=== PATIENT | female | born 1990 | race Caucasian/White ===

== ENCOUNTER 2016-10-20 18:50 | Emergency (ER) | payer BC ==
[2016-10-20] MEDS ORDERED: NORMAL SALINE 1,000 ML IV ONE (18:59)
--- NOTE | 2016-10-20 19:08 | ERNOTE ---
Abdominal HPI - Narrative Date of Service: 10/20/16 - General Time Seen by Provider: 10/20/16 18:59 Source: patient Exam Limitations: no limitations - Immun/Allergies/Home Medications Immunizatons: IMMUNIZATION HX Immunizations Up to Date Yes Allergies/Adverse Reactions: Allergies latex Allergy (Unknown, Verified 10/20/16 20:17) Home Medications: HOME MEDICATIONS Ferrous Sulfate [Iron] 325 mg PO BID 11/01/14 [Last Taken 10/26/15 07:00] Vit No.128/Iron/FA [ Formula] 1 each PO DAILY 11/01/14 [Last Taken 10/25/15 21:00] Ascorbic Acid [Vitamin C] 500 mg PO BID 10/27/15 [Last Taken 10/25/15 2100] Ibuprofen [Motrin] 200 - 800 mg PO Q6H PRN #100 tab 10/28/15 [Last Taken Unknown ] - History of Present Illness Narrative: Pt. comes in with c/o multiple diarrheal stools for 2 days. Pt. states that she has mild intermittent RLQ pain but it is not severe or consistent. Pt. is also experiencing nausea with this. Pt. is 11 weeks . Pt. states that she has had 4 stools today. Pt. denies any prehospital treatment, melena, fever, alleviating factors, aggravating factors or prehospital treatment. Review of Systems - Review of Systems Constitutional: Present: no symptoms reported. Absent: recent illness, fever, chills, weakness, fatigue, malaise EYE: Present: no symptoms reported ENT: Present: no symptoms reported Respiratory: Present: no symptoms reported. Absent: shortness of breath, cough , wheezing Cardiology: Present: no symptoms reported. Absent: chest pain, palpitations, edema Gastrointestinal/Abdominal: Present: nausea, vomiting, diarrhea, abdominal pain Genitourinary: Present: no symptoms reported Musculoskeletal: Present: no symptoms reported. Absent: back pain, joint pain Skin: Present: no symptoms reported Neurological: Present: no symptoms reported. Absent: headache, dizziness/light- headedness, numbness, tingling All Other Systems: All systems neg except as marked - Patient's Past Medical History Patient History - Cardiac/Respiratory: Other Patient History - Cancer: No Hx of Cancer Patient History - Surgical Procedures: Other Patient History - Other: None - Social History Living Situations: spouse Abuse History: No History of abuse Psych History: No pertinent hx Alcohol Use: rarely Drug Use: none - Immunizations Immunizations Up to Date: Yes Physical Exam - Physical Exam General Appearance: Present: wd/wn, alert, no apparent distress Head Exam: Present: normal inspection, no evidence of injury Eye Exam: Normal inspection: bilateral, PERRL: bilateral, EOMI: bilateral Ears, Nose, Throat: Present: normal ENT inspection, normal pharynx Neck: Present: normal inspection, nontender. Absent: lymphadenopathy (R), lymphadenopathy (L) Respiratory: Present: no respiratory distress, normal breath sounds, no accessory muscle use, chest nontender, lungs clear Cardiovascular/Chest: Present: regular rate, rhythm, no murmur, normal peripheral pulses Gastrointestinal/Abdominal: Present: normal bowel sounds, nondistended, soft, no organomegaly, tenderness - RLQ mild. Absent: rebound, McBurney sign, Obturator sign, Dunn sign, Psoas sign, mass Back Exam: Present: normal inspection, normal range of motion, no CVA tenderness , no vertebral tenderness Extremity Exam: Present: normal inspection, non-tender, normal range of motion, no edema Neurological Exam: Present: alert, oriented, normal mood/affect, no motor/ sensory deficits Skin Exam: Present: normal color, warm/dry. Absent: pallor, skin rash ED Progress - Date and Time Seen: Date and Time: 10/20/16 20:[address] Alanis and he feels that the elevated neutrophils are likely related to gastroenterits but that pt. should follow up with OBGYN in 1- 2 days if no improvement. 10/20/16 20:[address] Adan and he agrees with treatment plan of hydration sending stool culture and having pt. follow up tomorrow by calling clinic for update. - Results and Orders Patient's Lab Results:: I have reviewed the patient's lab results. - Vital Signs Patient's Vital Signs:: I have reviewed the patient's vital signs. - CT/Ultrasound CT/Ultrasound Narrative: US shows no definable appendix or fluid abnormalities in the abdomen. US does show normal 11week IUP. - Progress/Reassessment Progress:: Improved Departure - Departure Clinical Impression: Acute gastroenteritis Disposition: Home self-care Condition: Good Instructions: Viral Gastroenteritis, Adult, [id number] Additional Instructions: Please follow up with greg JACOBS tomorrow by calling clinic with an update of your condition. Please increase fluids as able.
[2016-10-20 19:14] LABS: Hematocrit 34.2 % (37.0-47.0); Mean Corpuscular Hgb Conc 35.1 g/dl (32-36); Mean Platelet Volume 10.1 fl (6.0-9.5); Neutrophil # 9.4 K/mm3 (1.3-6.0); Neutrophil % 85.9 % (42-75.0); Platelet Count 232 K/mm3 (150-450); Red Blood Count 3.64 M/mm3 (4.2-5.4); Red Cell Distribution Width 12.6 % (11.5-14.0); White Blood Count 10.9 K/mm3 (4.0-10.5)
[2016-10-20 19:27] LABS: Albumin * 3.4 gm/dl (3.4-5.0); Anion Gap 14.4 mmol/L (6.8-13.8); BUN/Creatinine Ratio 11.3 (9.0-21.6); Bilirubin, Total 0.7 mg/dL (0.0-1.1); Ca. Corrected For Albumin 8.2 mg/dL (8.4-10.2); Carbon Dioxide 23.2 mmol/L (24-32.6); Potassium 3.6 mmol/L (3.4-4.6); Total Protein 7.1 gm/dL (6.2-8.2)
[2016-10-20 19:37] LABS: Urine Appearance Slightly Cloudy; Urine Bacteria None Seen; Urine Bilirubin Negative (NEGATIVE); Urine Blood Negative /ul (NEGATIVE); Urine Color Yellow; Urine Ketone Negative (NEGATIVE); Urine Nitrite Negative (NEGATIVE); Urine Protein Negative (NEGATIVE); Urine RBC None Seen /hpf (0-5); Urine Urobilinogen Normal (NORMAL); Urine WBC 0-5 /hpf (0-5)
[2016-10-20 21:32] VITALS: BP 106/61
== END 2016-10-20 21:37 | disposition home or self-care (01) ==
LOC: ER 18:50
DX: K52.9 Noninfective gastroenteritis and colitis, unspecified (principal)

== ENCOUNTER 2017-05-05 | Inpatient (IN) | payer BC ==
[2017-05-05] MEDS ORDERED: OXYTOCIN/DEXTROSE 5%-WATER 30 UNITS/500 ML BAG IV ONE ×2 (00:23→12:34)
[2017-05-05] MEDS ORDERED: PENICILLIN G POTASSIUM 5 MILLIONUNT in DEXTROSE 5 % IN WATER 100 ML IV ONE ×2 (00:23)
[2017-05-05] MEDS ORDERED: LIDOCAINE HCL 50 ML VIAL PERI PRN (00:23)
[2017-05-05] MEDS ORDERED: PENICILLIN G POTASSIUM 2.5 MILLIONUNT in DEXTROSE 5 % IN WATER 100 ML IV SCH ×2 (04:30)
[2017-05-05] MEDS: PENICILLIN G POTASSIUM 2.5 MILLIONUNT in DEXTROSE 5 % IN WATER 100 ML IV SCH ×4 (06:02→10:01)
[2017-05-05] MEDS: RINGER'S SOLUTION,LACTATED 1,000 ML IV ONE ×2 (08:30→09:43)
--- NOTE | 2017-05-05 09:00 | PN ---
Progess Note - Interim Date: 05/05/17 Time: 08:57 Narrative: 05/05/17 08:58 Patient becoming more uncomfortable with contractions, desiring epidural Vital signs stable. Pitocin at 9 mu/min. FHT: 140 baseline, reassuring Contractions q 2-3 min Cervix: 4-5/70/+2, AROM-clear Impression: Intrauterine at 39-5/7 weeks induction of labor pre- progressing well. GBS positive carrier-status post 2 doses of IV penicillin Plan: Requested epidural.
[2017-05-05] MEDS ORDERED: NALOXONE HCL 1 MG/1 ML SYRG IV PRN (09:12)
[2017-05-05] MEDS ORDERED: ONDANSETRON HCL/PF 2 MG/ML VIAL IV PRN (09:12)
[2017-05-05] MEDS ORDERED: BUPIVACAINE HCL/0.9 % NACL/PF 250 ML EP PRN (09:12)
[2017-05-05] MEDS ORDERED: fentaNYL CITRATE/PF 50 MCG/ML AMPUL IT SCH (09:15)
--- NOTE | 2017-05-05 09:31 | OR ---
Anesthesia Pre Procedure Eval Date of Service: 05/05/17 Pre Procedure Evaluation: Anesthesia Pre Procedure Evaluation Heart Rate: 67 Blood Pressure: 100/72 Temperature: 37 0C Respiratory Rate: 18 SaO2: 96 DATE: 05/05/2017 TIME: 9:30 AM INDICATIONS: Active labor labor pain PAST MEDICAL HISTORY: Multipara patient in active labor requesting labor analgesia History of GERD: No History of smoking:No History of sleep apnea:No EXAM: Heart regular were; lungs clear ASSESSMENT OF MEDICAL STATUS: Appropriate candidate for labor analgesia PLANNED PROCEDURE: Combination spinal epidural for labor analgesia Home Medications: HOME MEDICATIONS Ferrous Sulfate [Iron] 325 mg PO BID 11/01/14 [Last Taken 05/04/17] Vit No.128/Iron/FA [ Formula] 1 each PO DAILY 11/01/14 [Last Taken 05/04/17] Ascorbic Acid [Vitamin C] 500 mg PO BID 10/27/15 [Last Taken 05/04/17]
--- NOTE | 2017-05-05 09:54 | OR ---
Anesthesia Procedure Note - Anesthesia Procedure Note Date of Service: 05/05/17 Narrative: 05/05/17 09:48 ANESTHESIA PROCEDURE NOTE Date of Procedure: 05/05/2017 Time of procedure: 9:30 AM. Performed by: LIDA Phelps CRNA, MSN Credit Collector: Lin Torres RN. Preprocedure diagnosis: Active labor, labor pain. Post procedure diagnosis: Same. Procedure:Epidural for labor analgesia L4 5. Indications: Labor pain. Findings: See below. Details of the procedure: The patient was placed on the side of the bed in sitting positionand prepped with DuraPrep then draped in a sterile fashion. Lidocaine 1% was infiltrated to the skin and subcutaneous tissues at the level of the L4 5 interspace. An 18-gauge Touhy needle was used to approach the epidural space with loss of resistance technique. Once loss of resistance was achieved a 27-gauge spinal needle was passed through the epidural needle and CSF was contacted. After CSF returned, 20 mcg of fentanyl was injected in the spinal needle was removed the epidural catheter was then threaded approximately 4 cm in the epidural needle was removed. The catheter was taped in place and after careful aspiration 3 mL of 1.5% lidocaine with 1-200,000 epinephrine was injected without change in maternal heart rate or sensorium. . EBL: Minimal. Fluids: N/A. Specimen: N/A. Post procedure condition: The patient tolerated the procedure well with. Good Relief. No complications were noted. Thank you for this consultation. Robert Nolan CRNA, ARNP, MSN
[2017-05-05] MEDS ORDERED: SENNOSIDES 8.6 MG TABLET PO PRN (12:34)
[2017-05-05] MEDS ORDERED: HYDROCORTISONE 30 APPL TUBE TP PRN (12:34)
[2017-05-05] MEDS ORDERED: GLYCERIN/WITCH HAZEL LEAF 40 APPL BOX TP PRN (12:34)
[2017-05-05] MEDS ORDERED: oxyCODONE HCL/ACETAMINOPHEN 1 TAB TABLET PO PRN (12:34)
[2017-05-05] MEDS ORDERED: BISACODYL 10 MG SUPP.RECT RC PRN (12:34)
[2017-05-05] MEDS ORDERED: BENZOCAINE/MENTHOL 81 SPRAY CAN TP PRN (12:34)
--- NOTE | 2017-05-05 12:36 | OR ---
Operative Report - Dictated Report Narrative: Spontaneous vaginal delivery of viable female at 1139 on 05/05/2017 with Apgars 9 and 9, weighing 2971 g in ANN position with right hand at chin. Cord clamping delayed approximately 1 minute Placenta delivered complete, intact, with three vessel cord Estimated blood loss: less than 50 ml Lacerations: None
[2017-05-05] MEDS: IBUPROFEN 800 MG TABLET PO PRN ×2 (14:02→19:53)
[2017-05-05] MEDS: FERROUS SULFATE 325 MG TABLET PO SCH (23:20)
[2017-05-05] MEDS: ASCORBIC ACID 500 MG TABLET PO SCH (23:20)
[2017-05-05] MEDS: DOCUSATE SODIUM 100 MG CAPSULE PO SCH (23:20)
[2017-05-06] MEDS: oxyCODONE HCL/ACETAMINOPHEN 1 TAB TABLET PO PRN ×2 (00:29→12:11)
[2017-05-06] MEDS: IBUPROFEN 800 MG TABLET PO PRN ×2 (07:11→13:33)
[2017-05-06] MEDS: FERROUS SULFATE 325 MG TABLET PO SCH ×2 (10:46→20:39)
[2017-05-06] MEDS: PRENATAL VITS96/IRON FUM/FOLIC 1 TAB TABLET PO SCH (10:46)
[2017-05-06] MEDS: DOCUSATE SODIUM 100 MG CAPSULE PO SCH ×2 (10:46→20:39)
[2017-05-06] MEDS: ASCORBIC ACID 500 MG TABLET PO SCH ×2 (10:50→20:38)
--- NOTE | 2017-05-06 14:13 | PN ---
Subjective - Date and Time Seen Date: 05/06/17 Time: 14:12 - Seen earlier this am Objective - Vitals Vitals: Last Vital Signs Temp 36.7 C 05/06/17 11:10 Pulse 62 05/06/17 11:10 Resp 18 05/06/17 11:10 BP 103/59 05/06/17 11:10 Pulse Ox 95 05/06/17 11:10 Patient denies complaints. Breast-feeding well Lochia wnl Abdomen - soft, nontender Uterus - firm, at umbilicus - 1 No calf tenderness Impression: day #1 - s/p spontaneous vaginal delivery. Plan: Continue routine care Cauti Physician Documentation - Urinary Catheter Management Urethral (Jarquin) Date of Insertion: 05/05/17 Time of Insertion: 10:30 Date of Removal: 05/05/17 Time of Removal: 11:30
[2017-05-07] MEDS: IBUPROFEN 800 MG TABLET PO PRN (03:02)
[2017-05-07] MEDS: DOCUSATE SODIUM 100 MG CAPSULE PO SCH (09:26)
[2017-05-07] MEDS: PRENATAL VITS96/IRON FUM/FOLIC 1 TAB TABLET PO SCH (09:26)
[2017-05-07] MEDS: ASCORBIC ACID 500 MG TABLET PO SCH (09:26)
[2017-05-07] MEDS: FERROUS SULFATE 325 MG TABLET PO SCH (09:26)
[2017-05-07 10:23] VITALS: BP 103/72
--- NOTE | 2017-05-07 11:52 | PN ---
Subjective - Date and Time Seen Date: 05/07/17 Time: 11:52 Objective - Vitals Vitals: Last Vital Signs Temp 37 C 05/07/17 07:00 Pulse 66 05/07/17 07:00 Resp 18 05/07/17 07:00 BP 103/72 05/07/17 07:00 Pulse Ox 98 05/07/17 07:00 Patient denies complaints. Lochia wnl Abdomen - soft, nontender Uterus - firm, at umbilicus - 2 No calf tenderness Impression: day #2 - s/p spontaneous vaginal delivery. Plan: Routine discharge instructions Cauti Physician Documentation - Urinary Catheter Management Urethral (Jarquin) Date of Insertion: 05/05/17 Time of Insertion: 10:30 Date of Removal: 05/05/17 Time of Removal: 11:30
[2017-05-07] MEDS ORDERED: FERROUS SULFATE 325 MG TABLET PO SCH (21:00)
== END 2017-05-07 13:45 | disposition home or self-care (01) | DRG 775 ==
LOC: OB → MS 05-06 15:48
PROVIDERS: ADMIT Obstetrics & Gynecology; ATTEND Obstetrics & Gynecology
PROC: 10E0XZZ Delivery of Products of Conception, External Approach (ICD-10-PCS; principal; 2017-05-05)
PROC: 3E033VJ Introduction of Other Hormone into Peripheral Vein, Percutaneous Approach (ICD-10-PCS; 2017-05-05)
PROC: 10907ZC Drainage of Amniotic Fluid, Therapeutic from Products of Conception, Via Natural or Artificial Opening (ICD-10-PCS; 2017-05-05)
PROC: 4A1HXCZ Monitoring of Products of Conception, Cardiac Rate, External Approach (ICD-10-PCS; 2017-05-05)
PROC: 00HU33Z Insertion of Infusion Device into Spinal Canal, Percutaneous Approach (ICD-10-PCS; 2017-05-05)
DX: O99.824 Streptococcus B carrier state complicating childbirth (principal); Z3A.40 40 weeks gestation of pregnancy; Z37.0 Single live birth

== ENCOUNTER 2020-06-28 08:54 | Inpatient (IN) ==
[2020-06-28] MEDS ORDERED: RINGER'S SOLUTION,LACTATED 1,000 ML IV ONE (09:03)
[2020-06-28] MEDS ORDERED: OXYTOCIN/0.9 % SODIUM CHLORIDE 30 UNITS/500 ML BAG IV ONE ×2 (09:03→16:24)
[2020-06-28] MEDS ORDERED: DEXTROSE 5%-LACTATED RINGERS 1,000 ML IV PRN (09:03)
[2020-06-28] MEDS ORDERED: PENICILLIN G POTASSIUM 5 MILLIONUNT in DEXTROSE 5 % IN WATER 100 ML IV ONE ×2 (09:03)
[2020-06-28] MEDS ORDERED: ONDANSETRON 4 MG TAB.RAPDIS PO PRN (09:03)
[2020-06-28] MEDS ORDERED: BUPIVACAINE HCL/0.9 % NACL/PF 250 ML EP PRN (10:37)
[2020-06-28] MEDS ORDERED: ONDANSETRON HCL/PF 2 MG/ML VIAL IV PRN (10:37)
[2020-06-28] MEDS ORDERED: NALOXONE HCL 1 MG/1 ML SYRG IV PRN (10:37)
--- NOTE | 2020-06-28 10:38 | ANES ---
Anesthesia Pre Procedure Eval Vitals/Labs: Last Vital Signs Temp 36.3 C 06/28/20 09:10 Pulse 85 06/28/20 09:10 Resp 20 06/28/20 09:10 BP 123/74 06/28/20 09:10 Pulse Ox 100 06/28/20 09:10 HOME MEDICATIONS prenat.vits,ellen,[id number]-wxrz-jswmp 1 tab PO DAILY 12/13/19 [Last Taken Unknown] Allergies/Adverse Reactions: Allergies Allergy/AdvReac Type Severity Reaction Status Date / Time latex Allergy Unknown Unknown Verified 06/28/20 09:12 band aids AdvReac Mild Reddened Uncoded 06/28/20 09:12 Skin - Planned Procedure Planned Procedure: elective induction Medication List Reviewed:: Yes Allergies Verified: Yes Medical History (Last Reviewed 06/28/20 @ 10:36 by Robert Nolan CRNA) Incomplete spontaneous (Ruled-out) Menorrhagia with regular cycle (Acute) Ovarian cyst Onset Date: ~2010 Right Allergy to animal dander Onset Date: Unknown Reaction: Itchy eyes, congestion Allergy to cockroaches Onset Date: Unknown Reaction unknown. Allergy tested positive. Allergy to mold Onset Date: Unknown Reaction: Rash, difficulty breathing. Allergy to pollen Onset Date: Unknown Trees, grasses, [place]. Reaction: Itchy eyes, congestion. [place] Dust Allergy Onset Date: Unknown Reaction: Throat constricts, rash, difficulty breathing. Body piercing Onset Date: Unknown Carpal tunnel syndrome Onset Date: ~05/2016 Bilateral Hypoglycemia Onset Date: Unknown Borderline. Wears glasses Onset Date: Unknown Anemia Onset Date: 08/01/15 w/pregnancies (08/01/15 & 09/30/16) Ganglion of joint Onset Date: ~2005 Right Heart murmur Onset Date: Unknown As an infant. Still slightly present in HS. Nothing noted since then. Missed Onset Date: 10/31/14 Mononucleosis Onset Date: ~2006 Traumatic injury Onset Date: Unknown Tympanic membrane (unsure which) - Adult PE tube used instead of pediatric tube causing deterioration of tympanic membrane. Surgical History (Last Reviewed 06/28/20 @ 10:36 by Robert Nolan CRNA) Ganglion cyst Onset Date: ~2005 Right - Removal History of ear surgery Onset Date: ~1996 Tympanic Membrane Reconstriction Status post adenoidectomy Onset Date: ~1998 Suction Curettage Onset Date: 11/02/14 12 wk embryonic demise Show [place] teeth extracted Onset Date: ~2010 Family History (Last Reviewed 06/28/20 @ 10:37 by Robert Nolan CRNA) Grandfather Prostate cancer Grandfather Hypertension Grandmother Cirrhosis of liver without mention of alcohol Mother Alive and well Father Alive and well - Family Anesthesia History Family History:: no untoward family reactions to anesthesia, no familial bleeding tendencies, no family history of clotting disorders, no family history of premature - Airway/Neck/Teeth Within Normal Limits:: Yes Teeth Condition: intact Neck Exam: full range of motion Mallampatti Score: 2 Thyromental (T-M) distance: > 6 cm Mandibulo Hyoid distance: > 3 cm - Respiratory Respiratory Physical: lungs clear Smoking Status: Never smoker Sleep Apnea currently treated: No Sleep Apnea by current assessment: No - Cardiovascular Tolerate Activity: Fair Heart Sounds: S1 & S2, Regular - Gastrointestinal NPO since: This am - Anesthesia Assessment and Plan ASA Class: PS, II, E Anesthesia Type Plan: Epidural - CSE for labor analgesia
[2020-06-28] MEDS ORDERED: fentaNYL CITRATE/PF 50 MCG/ML AMPUL IT SCH (10:45)
--- NOTE | 2020-06-28 11:22 | ANES ---
Post Anesthesia Discharge - Transfer of Care Transfer of Care handoff given to nurse: Yes - Discharge from PACU Discharge from PACU when meets criteria: Yes - Comfortable post CSE.
--- NOTE | 2020-06-28 11:22 | ANES ---
Anesthesia Procedure Note Procedure Note: ANESTHESIA PROCEDURE NOTE Date of Procedure: 06/28/2020 Time of procedure: 10:40 AM. Performed by: LIDA Phelps CRNA, MSN Hr Manager: Rona Hewitt RN. Preprocedure diagnosis: Active labor, labor pain. Post procedure diagnosis: Same. Procedure:Epidural for labor analgesia L4-5. Indications: Labor pain. Findings: See below. Details of the procedure: The patient was placed on the side of the bed in sitting positionand prepped with DuraPrep then draped in a sterile fashion. Lidocaine 1% was infiltrated to the skin and subcutaneous tissues at the level of the L3-4 interspace. An 18-gauge Touhy needle was used to approach the epidural space with loss of resistance technique. Once loss of resistance was achieved a 27-gauge spinal needle was passed through the epidural needle and CSF was contacted. After CSF returned, 20 mcg of fentanyl was injected in the spinal needle was removed the epidural catheter was then threaded approximately 4 cm in the epidural needle was removed. The catheter was taped in place and after careful aspiration 3 mL of 1.5% lidocaine with 1-200,000 epinephrine was injected with an increase in heart rate and change in sensorium. After multiple attempts to readjust the catheter and flush I was not able to overcome the blood return. The procedure was repeated without use of intrathecal. This time a test dose was administered without issue. EBL: Minimal. Fluids: N/A. Specimen: N/A. Post procedure condition: The patient tolerated the procedure well with [] relief. No complications were noted. Thank you for this consultation. Robert Nolan CRNA, ARNP, MSN
--- NOTE | 2020-06-28 11:26 | ANES ---
Post Anesthesia Assessment - Vital Signs Vitals: Last Vital Signs Temp 36.3 C 06/28/20 09:10 Pulse 85 06/28/20 09:10 Resp 20 06/28/20 09:10 BP 123/74 06/28/20 09:10 Pulse Ox 100 06/28/20 09:10 Airway Patency: Normal - Mental Status Level Of Consciousness: Awake, Alert, Appropriate - Pain Level Pain Score: 0 - N/V Assessment Nausea/Vomiting Presence: None Dehydration:: No
[2020-06-28] MEDS ORDERED: PENICILLIN G POTASSIUM 2.5 MILLIONUNT in DEXTROSE 5 % IN WATER 100 ML IV SCH ×2 (13:03)
--- NOTE | 2020-06-28 13:07 | HP ---
Chief Complaint - Chief Complaint Date of Service: 06/28/20 Time of Service: 13:00 Chief Complaint: elective induction of labor History of Present Illness: 29 yo at 39 wks admitted for elective induction of labor. This complicated by anemia. Rh positive Rubella immune GBS positive in prior pregnancies, desires tx without testing this . Medical History (Last Reviewed 06/28/20 @ 13:03 by Fady López DO) Incomplete spontaneous (Ruled-out) Menorrhagia with regular cycle (Acute) Ovarian cyst Onset Date: ~2010 Right Allergy to animal dander Onset Date: Unknown Reaction: Itchy eyes, congestion Allergy to cockroaches Onset Date: Unknown Reaction unknown. Allergy tested positive. Allergy to mold Onset Date: Unknown Reaction: Rash, difficulty breathing. Allergy to pollen Onset Date: Unknown Trees, grasses, [place]. Reaction: Itchy eyes, congestion. Ojeda Dust Allergy Onset Date: Unknown Reaction: Throat constricts, rash, difficulty breathing. Body piercing Onset Date: Unknown Carpal tunnel syndrome Onset Date: ~05/2016 Bilateral Hypoglycemia Onset Date: Unknown Borderline. Wears glasses Onset Date: Unknown Anemia Onset Date: 08/01/15 w/pregnancies (08/01/15 & 09/30/16) Ganglion of joint Onset Date: ~2005 Right Heart murmur Onset Date: Unknown As an . Still slightly present in HS. Nothing noted since then. Missed Onset Date: 10/31/14 Mononucleosis Onset Date: ~2006 Traumatic injury Onset Date: Unknown Tympanic membrane (unsure which) - Adult PE tube used instead of pediatric tube causing deterioration of tympanic membrane. Surgical History: Surgical History (Last Reviewed 06/28/20 @ 13:03 by Fady López DO) Ganglion cyst Onset Date: ~2005 Right - Removal History of ear surgery Onset Date: ~1996 Tympanic Membrane Reconstriction Status post adenoidectomy Onset Date: ~1998 Suction Curettage Onset Date: 11/02/14 12 wk embryonic demise [place] teeth extracted Onset Date: ~2010 Family History: Family History (Last Reviewed 06/28/20 @ 13:03 by Fady López DO) Grandfather Prostate cancer Grandfather Hypertension Grandmother Cirrhosis of liver without mention of alcohol Mother Alive and well Father Alive and well Social History: (Last Reviewed 06/28/20 @ 13:03 by CANDELARIO Moy Social History: Marital status: household members: spouse number of children: 2 current occupational status: employed current occupation: [employer] Service current occupational exposures/hazards: No Highest level of school completed/degree received: Associate degree: [employer] Sexually Active: Yes Service: No Tobacco: Smoking Status: Never smoker Alcohol: alcohol intake: former alcohol intake frequency: a few times a week Substance Use: substance use type: does not use Dietary Habits: caffeine: Yes caffeine comment: 2-3/day Exercise: Physical activity type: other cardio How many days of moderate to strenuous exercise, like a brisk walk, did you do in the last 7 days: 7 Review Of Systems (GEN) - Review of Systems Generalized/Overall Review: Present: No Symptoms Reported EENTM: Present: No Symptoms Reported Respiratory: Present: No Symptoms Reported Cardiac: Present: No Symptoms Reported Abdominal: Present: Other - contractions - mild, irregular Genitourinary: Present: No Symptoms Reported Musculoskeletal: Present: No Symptoms Reported Neurological: Present: No Symptoms Reported Skin: Present: No Symptoms Reported Endocrine: Present: No Symptoms Reported Immunizations: IMMUNIZATION HX Immunizations Up to Date Yes History of Influenza Vaccine No Hx Pneumococcal Vaccination No Allergies/Adverse Reactions: Allergies Allergy/AdvReac Type Severity Reaction Status Date / Time latex Allergy Unknown Unknown Verified 06/28/20 09:12 band aids AdvReac Mild Reddened Uncoded 06/28/20 09:12 Skin Home Medications: HOME MEDICATIONS Vits96/Iron Fum/Folic [ S] 1 tab PO DAILY 06/28/20 [Last Taken Unknown] Exam - Exam Vital Signs: Vital Signs - Last Taken Temp 36.3 C 06/28/20 09:10 Pulse 85 06/28/20 09:10 Resp 20 06/28/20 09:10 BP 123/74 06/28/20 09:10 Pulse Ox 100 06/28/20 09:10 Constitutional: Present: Alert, Oriented x3, Cooperative, No distress ENT Exam: Present: hearing grossly normal Neck: Present: non-tender, trachea midline. Absent: thyromegaly Breasts: Present: Exam deferred Respiratory: Present: lungs clear, no respiratory distress Cardiovascular/Chest: Present: regular rate, rhythm, no edema Abdomen: Present: soft, nontender, no rebound tenderness, other - Gravid /Rectal: Present: Other - Cervix - 4/75/-2 Extremity: Present: no pedal edema, no calf tenderness Skin Exam: Present: normal color, warm/dry, no cyanosis Lymphatic: Present: no adenopathy Neurologic: Present: alert, normal mood/affect, oriented x 3 Appearance: Present: appropriate appearance, appropriate insight Eye contact: Present: cooperative, good eye contact Thoughts: Present: normal thought pattern, normal mood /affect Assessment/Plan - Assessment/Plan (1) Encounter for elective induction of labor Assessment: Admit for induction of labor. Epidural PRN. Problem: Acute
--- NOTE | 2020-06-28 13:10 | PN ---
Progess Note - Interim Date: 06/28/20 Time: 13:08 Narrative: 06/28/20 13:08 Patient comfortable with epidural Vital signs stable. Pitocin at 4 mu/min. FHT: 140 baseline, reassuring contractions q 2-3 min Cervix: 4/60/-2 at 1120, AROM-clear at 1121 Impression: Intrauterine at 39 weeks. Elective induction of labor Plan: Continue present plan
--- NOTE | 2020-06-28 16:10 | OR ---
Operative Report - Dictated Report Narrative: Spontaneous vaginal delivery of vigorously crying viable female at 1526 on 06/28/2020 with Apgars 9 and 9, weighing 3326 g in ANN position with tight nuchal cord x1. Patient was in OP presentation and manually rotated to ANN position and nuchal cord was reduced with delivery of head. Cord clamping delayed approximately 1 minute Placenta delivered complete, intact, with three vessel cord Estimated blood loss: Less than 50 ml Anesthesia: Epidural Lacerations: None History for MU History for MU Definition: * The number of deliveries resulting in a live the patient experienced prior to current hospitalization * The previous delivery of live twins or any live multiple gestation is considered one live event. *If primagravida or nulliparous is documented select zero for the number of previous live births. Live Events: Live Events: 2
[2020-06-28] MEDS ORDERED: BISACODYL 10 MG SUPP.RECT RC PRN (16:24)
[2020-06-28] MEDS ORDERED: BENZOCAINE/MENTHOL 81 SPRAY CAN TP PRN (16:24)
[2020-06-28] MEDS ORDERED: SENNOSIDES 8.6 MG TABLET PO PRN (16:24)
[2020-06-28] MEDS ORDERED: HYDROCORTISONE 30 APPL TUBE TP PRN (16:24)
[2020-06-28] MEDS ORDERED: IBUPROFEN 800 MG TABLET PO PRN (16:24)
[2020-06-28] MEDS ORDERED: GLYCERIN/WITCH HAZEL LEAF 40 APPL BOX TP PRN (16:24)
[2020-06-28] MEDS: IBUPROFEN 800 MG TABLET PO PRN (16:39)
[2020-06-28] MEDS: oxyCODONE HCL/ACETAMINOPHEN 1 TAB TABLET PO PRN (17:24)
[2020-06-29] MEDS: oxyCODONE HCL/ACETAMINOPHEN 1 TAB TABLET PO PRN (00:06)
[2020-06-29] MEDS: DOCUSATE SODIUM 100 MG CAPSULE PO SCH ×3 (00:13→20:27)
--- NOTE | 2020-06-29 09:17 | PN ---
Subjective - Date and Time Seen Date: 06/29/20 Time: 09:15 Objective - Vitals Vitals: Last Vital Signs Temp 36.8 C 06/29/20 07:00 Pulse 61 06/29/20 07:00 Resp 16 06/29/20 07:00 BP 109/72 06/29/20 07:00 Pulse Ox 98 06/29/20 02:31 Patient denies complaints. Lochia -passing some clots this morning abdomen - soft, nontender Uterus -firm, at umbilicus - 1 No calf tenderness Impression: day #1 - s/p spontaneous vaginal delivery. Bleeding a little heavy this morning Plan: Continue routine care. If heavy bleeding persist will start on Methergine and Cytotec. Cauti Physician Documentation - Urinary Catheter Management Urethral (Jarquin) Date of Insertion: 06/28/20 Time of Insertion: 12:15 Date of Removal: 06/28/20 Time of Removal: 14:56 Assessment/Plan - Problems/Diagnosis (1) Encounter for elective induction of labor Problem: Acute
[2020-06-29] MEDS: PRENATAL VITS96/IRON FUM/FOLIC 1 TAB TABLET PO SCH (10:49)
[2020-06-29] MEDS: IBUPROFEN 800 MG TABLET PO PRN (18:40)
[2020-06-30 06:59] VITALS: BP 116/69
[2020-06-30] MEDS: PRENATAL VITS96/IRON FUM/FOLIC 1 TAB TABLET PO SCH (08:46)
[2020-06-30] MEDS: DOCUSATE SODIUM 100 MG CAPSULE PO SCH (08:46)
--- NOTE | 2020-06-30 10:52 | PN ---
Subjective - Date and Time Seen Date: 06/30/20 Time: 10:51 Objective - Vitals Vitals: Last Vital Signs Temp 36.4 C 06/30/20 06:30 Pulse 61 06/30/20 06:30 Resp 18 06/30/20 06:30 BP 116/69 06/30/20 06:30 Pulse Ox 100 06/30/20 06:30 Patient denies complaints. Breast-feeding well Lochia wnl abdomen - soft, nontender Uterus -firm, at umbilicus - 2 No calf tenderness Impression: day #2 - s/p spontaneous vaginal delivery. Plan: Routine discharge instructions Cauti Physician Documentation - Urinary Catheter Management Urethral (Jarquin) Date of Insertion: 06/28/20 Time of Insertion: 12:15 Date of Removal: 06/28/20 Time of Removal: 14:56 Assessment/Plan - Problems/Diagnosis (1) Vaginal delivery Problem: Acute (2) Encounter for elective induction of labor Problem: Resolved
--- NOTE | 2020-06-30 10:53 | DS ---
OB Discharge Summary (1) Vaginal delivery Status: Acute (2) Encounter for elective induction of labor Status: Resolved Delivery Date: 06/28/20 Delivery Time: 15:26 :: 4 Para:: 3 Gestational weeks:: 39 Gestational days:: 1 Intrapartum Procedures: Spontaneous Vaginal Delivery, Delivered, Anesthesia - Epidural /OP Complications: No Complications Discharge Diagnosis: Term -Delivered - Discharge Information Date of Discharge: 06/30/20 Hospital Course: 29-year-old 4 now para 3 admitted at 39 weeks for elective induction of labor which went uneventfully. course was uncomplicated. Discharge Location: Home Disposition: Home self-care Condition: Good Activity on Discharge:: Activity as tolerated, Pelvic Rest Discharge Diet: General/regular food Additional Patient Instructions (free text): Nila will follow up with Dr. López on Continue to take vitamins one daily. Rest when your baby rests. Drink plenty of water, eat a lot of fruits and vegetables, and lean meat. Nurse your baby every 2-3 hours and when showing feeding cues. Padmini will follow up with Dr. Gonzalez on Padmini birthweight was 7#5.3 oz. today's weight was Padmini blood type is O positive. She has passed her hearing screen, her CHD and her Metabolic Screen has been drawn. Always use safe sleeping practices. always place her on her back in her own bed. No co-sleeping, bumper pad, stuffed animals, pillows or heavy blankets in sleeping area. Thank you for choosing [facility] [place] for your special event. We hope we have exceeded your expectations. If you have any concerns or questions please call [facility] [phone], [facility] [phone], or [facility] [phone]. Complete Home Medications List: Complete Home Medication List: Vits96/Iron Fum/Folic [ S] 1 tab PO DAILY 06/28/20 - Plan Discharge to:: Home Follow up in office in:: 3-4 weeks - [place] Information Weight (Grams): 3,326 Infant Sex: Female Score 1 min: 9 Score 5 min: 9 Infant Complications: None
== END 2020-06-30 12:40 | disposition home or self-care (01) | DRG 807 ==
LOC: OB 08:54 → MS 06-29 17:00
PROVIDERS: ADMIT Obstetrics & Gynecology; ATTEND Obstetrics & Gynecology